=== PATIENT | female | born 1945 | race Hispanic/Latino ===

== ENCOUNTER → 2018-10-04 | Outpatient (CLI) | payer OTHER | END | disposition home or self-care (01) | LOC: RAH 11:10 | PROVIDERS: ATTEND Internal Medicine | DX: Z12.31 Encounter for screening mammogram for malignant neoplasm of breast (principal) | CPT/HCPCS: 77067 ==

== ENCOUNTER → 2022-09-01 | Outpatient (CLI) | payer MEDICARE ==
[~2022-09-01] MED LIST: AEC81 PO; AMLO-257 PO; ATOR40TA69 PO; GLIP10TA9 PO; LEVO75CA5 PO; LISI1TAB51 PO; METF-444 PO
== END | disposition home or self-care (01) ==
LOC: RAH 15:39
PROVIDERS: ATTEND Internal Medicine
DX: S80.01XS Contusion of right knee, sequela (principal); M25.561 Pain in right knee; X58.XXXA Exposure to other specified factors, initial encounter; Y93.89 Activity, other specified; Y92.89 Other specified places as the place of occurrence of the external cause; Y99.8 Other external cause status
CPT/HCPCS: 73560

== ENCOUNTER → 2023-12-21 | Outpatient (CLI) | payer MEDICARE | END | disposition home or self-care (01) | LOC: RAH 15:10 | PROVIDERS: ATTEND Internal Medicine | DX: Z12.31 Encounter for screening mammogram for malignant neoplasm of breast (principal); R92.323 Mammographic fibroglandular density, bilateral breasts | CPT/HCPCS: 77067 ==